=== PATIENT | female | born 2005 | race Caucasian/White ===

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

== ENCOUNTER 2023-10-23 11:38 | Emergency (ER) | payer OTHER, SELFPAY ==
[2023-10-23 12:20] VITALS: BP 113/78; PULSE 78; RESP 18; TEMP 37.1; O2SAT 96; BMI 19.0
--- NOTE | 2023-10-23 12:20 | EXP.UTC ---
Discharge Plan Disposition Patient Disposition: Home, Self-Care Condition: Good Prescriptions Prescriptions: New amoxicillin [amoxicillin] 875 mg tablet 875 mg PO Q12H Qty: 20 0RF fvmpizdtzijzvcl-qwhmzxbdt-PK [Bromfed DM] 2-30-10 mg/5 mL Syrup 5 ml PO Q6H PRN (Reason: Cough) Qty: 240 0RF methylprednisolone 4 mg Tablets,Dose Pack 4 mg PO DIRECTED Qty: 21 0RF No Action medroxyprogesterone [Depo-Provera] 150 mg/mL suspension 150 mg IM [id number] Qty: 1 3RF Referrals Follow up/Referrals: Fransisca Jalloh APRN [Primary Care Provider] - See instructions Activity Restrictions/Add. Instructions Additional Instructions/Restrictions: Drink plenty of fluids. Take tylenol or ibuprofen for pain or fever. Take the medications as directed. Follow up with your regular doctor. GO TO THE ER FOR ANY WORSENING SYMPTOMS Clinical Impressions Clinical Impression: Otitis media Instructions Patient Instructions: Middle Ear Infection Discharge ED Provider: Tyler Kelsey [facility] General Stated complaint: ear pain, can't hear Time Seen by Provider: 10/23/23 12:20 History of Present Illness Provider Complaint: She states that for the past 2 day she has had worsening right ear pain, sore throat, and sinus congestion. Related Data Previous Rx's Medication Instructions Recorded medroxyprogesterone 150 mg/mL 150 mg IM [id number] #1 mL 12/28/20 intramuscular suspension (Depo-Provera) amoxicillin 875 mg tablet 875 mg PO Q12H #20 tabs 10/23/23 opxsfojocgyloxo-epflhvgxymfxofi-HU 5 ml PO Q6H PRN Cough #240 mL 10/23/23 2 mg-30 mg-10 mg/5 mL oral syrup (Bromfed DM) methylprednisolone 4 mg tablets in 4 mg PO DIRECTED #21 tabs 10/23/23 a dose pack Allergies Allergy/AdvReac Type Severity Reaction Status Date / Time No Known Allergies Allergy Verified 10/23/23 12:26 [facility] Disclaimer: The information contained in this section may have been updated after the patient was seen, as this information can be updated by other users. Social History Smoking Status: Never smoker alcohol intake: never substance use type: denies use current occupational status: unemployed Travel in the last 8 weeks: None ROS Obtained: Yes All systems reviewed & no additional complaints except as documented Constitutional Constitutional: Denies chills, Reports fever(s) and Reports poor appetite Eyes Eyes: Denies eye discharge ENT Ears, Nose, Mouth, and Throat: Denies ear discharge, Reports otalgia, Denies hearing loss, Denies sinus pain and Reports sore throat Cardiovascular Cardiovascular: Denies chest pain and Denies dyspnea Respiratory Respiratory: Denies chest congestion, Reports cough and Denies dyspnea Gastrointestinal Gastrointestingal: Denies abdominal pain, diarrhea, nausea or vomiting Musculoskeletal Musculoskeletal: Denies arthralgias Integumentary/Breasts Skin/Breast: Denies rash Physical Exam General General appearance: alert and in no apparent distress Head Head exam: atraumatic, normocephalic and normal inspection Eye Eye exam: Present normal appearance; Absent PERRL or EOMI ENT ENT exam: Present mucous membranes moist and normal external ear exam Expanded ENT Exam TM/Canal exam: Bilateral TM: erythema, bulging and effusion Nose exam: Absent sinus tenderness Nasal speculum exam: Bilateral: normal Mouth exam: Present normal external inspection and other; Absent drooling Teeth exam: Present normal inspection Throat exam: Present tonsillar erythema and tonsillomegaly Neck Neck exam: Present normal inspection, full ROM and trachea midline; Absent tenderness, meningismus or lymphadenopathy Chest Chest inspection: Present normal inspection and symmetric chest wall rise; Absent tenderness Respiratory Respiratory exam: Present normal lung sounds bilaterally; Absent respiratory distress, wheezes or stridor Cardiovascular Cardiov
[2023-10-23 12:43] VITALS: BP 113/78; PULSE 78; RESP 18; TEMP 37.1; O2SAT 96
== END 2023-10-23 12:30 | disposition home or self-care (01) ==
PROVIDERS: Emergency Provider Nurse Practitioner Family; PCP Nurse Practitioner
DX: H66.93 Otitis media, unspecified, bilateral (principal); R07.0 Pain in throat; R09.81 Nasal congestion; R50.9 Fever, unspecified
CPT/HCPCS: 99204; 99212; G0463

== ENCOUNTER 2024-03-11 13:11 | Outpatient (CLI) | payer OTHER, SELFPAY ==
[2024-03-11 19:01] LABS: HCG,Quantitative 16339 mIU/ml (0-5.42)
== END 2024-03-11 23:59 | disposition home or self-care (01) ==
LOC: LAB 13:12
PROVIDERS: PCP Nurse Practitioner; Visit Provider Nurse Practitioner Obstetrics & Gynecology
DX: N92.6 Irregular menstruation, unspecified (principal)
CPT/HCPCS: 36415; 84144; 84702

== ENCOUNTER 2024-03-23 16:39 | Outpatient (CLI) | payer OTHER, SELFPAY ==
[2024-03-27 05:19] LABS: Neisseria gonorrhoeae, NAA Negative (Negative)
== END 2024-03-23 23:59 | disposition home or self-care (01) ==
LOC: LAB.DROPOF 16:40
PROVIDERS: PCP Nurse Practitioner Obstetrics & Gynecology; Visit Provider Nurse Practitioner Obstetrics & Gynecology
DX: O26.891 Other specified pregnancy related conditions, first trimester (principal); Z3A.08 8 weeks gestation of pregnancy; A56.2 Chlamydial infection of genitourinary tract, unspecified
CPT/HCPCS: 87086; 87088; 87491; 87591

== ENCOUNTER 2024-03-27 10:01 | Outpatient (CLI) | payer OTHER, SELFPAY ==
--- NOTE | 2024-03-27 10:01 | US_ITS ---
PROCEDURE: US OB <= 14 WEEKS FETUS CLINICAL INDICATION: for dates COMPARISON: No exams were available for comparison FINDINGS: Transvaginal sonographic images of the pelvis were obtained. From her last menstrual period she is 9weeks 0 days. An intrauterine gestational sac is present with a pole with a crown-rump length of 1.86cm This correlates to a gestational age of 8weeks 3days. heart tones are present with an FHR of 170bpm. Yolk sac is noted. The yolk sac measures 5.7mm. The right ovary is seen and appears normal. The left ovary is seen and appears normal. There appears to be a corpus luteum in the left ovary. There is no fluid in the cul-de-sac. IMPRESSION: 1. Viable fetus within the uterine cavity. Yolk sac and pole seen. 2. size is within 4 days of her ALIVIA. 3. Fetus measures 8 weeks 3 days and her ALIVIA will remain 10/30/2024. 4. Both ovaries are seen and appear normal. Dictated by: Sergio Cornejo MD 03/27/2024 18:00 Sergio Cornejo MD in [facility] 03/27/2024 18:00
== END 2024-03-27 23:59 | disposition home or self-care (01) ==
LOC: RAD 10:01
PROVIDERS: PCP Nurse Practitioner; Visit Provider Nurse Practitioner Obstetrics & Gynecology
DX: O26.893 Other specified pregnancy related conditions, third trimester (principal); Z3A.39 39 weeks gestation of pregnancy
CPT/HCPCS: 76801

== ENCOUNTER 2024-06-18 12:42 | Outpatient (CLI) | payer OTHER, SELFPAY ==
--- NOTE | 2024-06-18 12:46 | US_ITS ---
PROCEDURE: US OB /MATERNAL DETAIL CLINICAL INDICATION: 20 wk + Anatomy Scan-Complete COMPARISON: US US OB <= 14 WEEKS FETUS from 06/15/2020 FINDINGS: Transabdominal sonographic images of the pelvis were obtained. From her established due date she is 20 weeks 6 days. Single viable intrauterine gestation. Initially breech then cephalic position. Placenta: Anteriorplacenta grade 1. The placenta appears to be previa completely overlying the internal os. There is an average amount of fluid. The cervix appears satisfactory. Closed and measuring 4.5 cm in length. Complete survey performed and was unremarkable on the submitted images as in PACS. No discrete anomalies identified on survey imaging by technologist. Active fetus. Three-vessel cord with satisfactory umbilical cord insertion. 4- chamber heart noted. Situs, aortic arch, LVOT, RVOT, three-vessel view appear normal. Survey of brain & ventricles Unremarkable. Cerebellum, thalamus, choroid plexus, cisterna magna appear normal. Face and neck survey unremarkable. Profile, nasion, lips and nose appeared normal. Diaphragm and chest views unremarkable. Abdomen: Both kidneys noted and there is bilateral, mild renal pelvis dilation. It measures 4.1 mm and 3.6 mm.. Stomach and bladder noted and satisfactory. Spine: Survey of the spine satisfactory with no anomalies identified nor imaged. Cervical, thoracic, lower spine appear normal. Both arms and legs noted. Amniotic Fluid: Adequate. MVP 5.34 cm. Measurements: Average ultrasound age 20weeks 6days. Estimated due date by ultrasound age 1210/30/2024. Estimated weight 367g BPD = 21weeks 2days Heart Rate = 153bpm Cerebellum = 20weeks 3days Humerus = 21weeks 3days HC/AC is 1.16 FL/BPD is 0.66 FL/AC is 0.21 IMPRESSION: 1. Viable fetus in the breech presentation with an anterior placenta grade 1. 2. The placenta appears to overlie the internal cervical os. 3. The fluid is within normal limits with an MVP 5.34 cm. 4. Anatomical scan appears normal. 5. There is mild bilateral renal pelvis dilation, maximum 4.1 mm. 6. Suggest repeat scan at 28 weeks to look at the renal pelvis and placenta previa. 7. biometry is consistent with the dates. Dictated by: Sergio Cornejo MD 06/19/2024 10:27 Sergio Cornejo MD in [facility] 06/19/2024 10:27
== END 2024-06-18 23:59 | disposition home or self-care (01) ==
LOC: RAD 12:42
PROVIDERS: PCP Nurse Practitioner; Visit Provider Nurse Practitioner Obstetrics & Gynecology
DX: Z34.82 Encounter for supervision of other normal pregnancy, second trimester (principal); Z3A.20 20 weeks gestation of pregnancy
CPT/HCPCS: 76811

== ENCOUNTER 2024-07-23 11:16 | Outpatient (CLI) | payer OTHER, SELFPAY ==
[2024-07-23 12:07] LABS: Basophils % 0.3 % (0.1-2.0); Eosinophils # 0.1 K/mm3 (0.0-0.4); Eosinophils % 1.3 % (0.1-12.0); Hematocrit 35.9 % (37.0-47.0); Hemoglobin 11.5 g/dL (12.2-16.2); Lymphocytes # 1.8 K/mm3 (0.7-4.5); Lymphocytes % 21.5 % (10-50); Mean Corpuscular HGB Conc 32.1 g/dL (31.8-35.4); Mean Corpuscular Hemoglobin 30.5 pg (27.0-31.2); Mean Corpuscular Volume 94.9 fl (81-99); Mean Platelet Volume 8.1 fl (7.4-10.4); Monocytes # 0.5 K/mm3 (0.1-1.0); Monocytes % 5.6 % (1.7-9.3); Neutrophils # 5.9 K/mm3 (1.8-7.8); Neutrophils % 71.2 % (37.0-80.0); Platelet Count 252 K/mm3 (142-424); Red Blood Count 3.79 M/mm3 (4.20-5.40); Red Cell Distribution Width 13.6 % (11.5-17.5); White Blood Count 8.4 K/mm3 (4.5-13.0)
[2024-07-24 05:12] LABS: HCV Ab Non Reactive (Non Reactive); Hepatitis B Surface Antigen Negative (Negative)
[2024-07-24 06:37] LABS: Rubella Antibodies, IgG 1.78 index (Immune >0.99)
[2024-07-24 12:14] LABS: Rapid Plasma Reagin Ab Titer Non Reactive titer (NonRea<1:1)
== END 2024-07-23 23:59 | disposition home or self-care (01) ==
LOC: LAB 11:18
PROVIDERS: PCP Nurse Practitioner; Visit Provider Nurse Practitioner Obstetrics & Gynecology
DX: Z34.90 Encounter for supervision of normal pregnancy, unspecified, unspecified trimester (principal)
CPT/HCPCS: 36415; 85025; 86593; 86762; 86803; 86850; 87340

== ENCOUNTER 2024-08-13 10:08 | Outpatient (CLI) | payer OTHER, SELFPAY ==
--- NOTE | 2024-08-13 10:13 | US_ITS ---
PROCEDURE: US OB FOLLOW UP CLINICAL INDICATION: f/u on Placenta Previa COMPARISON: US US OB <= 14 WEEKS FETUS from 03/27/2024 US US OB /MATERNAL DETAIL from 06/18/2024 FINDINGS: Transabdominal sonographic images of the pelvis were obtained. The following parameters are obtained: From her established due date she is 28weeks 6days Viable fetus in the cephalic presentation with an anterior placenta grade 1. Placenta previa is no longer present. The cervix measures 4.22 cm. weight 1288 grams, 2 lb 13 oz. heart rate: 140bpm bpm. BPD: 29weeks 1day, 43 percentile HC: 29weeks 3days, 32 percentile AC: 29weeks 1day, 50 percentile FL: 28weeks 2days, 19 percentile HC/AC: 1.08 FL/BPD: 0.73 FL/AC: 0.21 Growth percentile: 35 Amniotic fluid index: 9.61cm, MVP 3.65 cm No obvious anomalies evident. profile seen, stomach, bladder, kidneys, three-vessel cord, spine, four chamber heart appear normal. There continues to be mild common bilateral renal pelvis dilation measuring 5.7 mm and 4.3 mm. IMPRESSION: 1. Viable fetus in the cephalic presentation with an anterior placenta grade 1. 2. Placenta previa is no longer present. 3. The fluid is within normal limits with an amniotic fluid index of 9.61 cm, MVP 3.65 cm. 4. There has been good interval growth with the fetus currently 35th percentile. 5. Limited anatomical scan appears normal. 6. There continues to be mild bilateral renal pelvis dilation measuring 5.7 mm and 4.3 mm. Dictated by: Sergio Cornejo MD 08/13/2024 13:50 Sergio Cornejo MD in [facility] 08/13/2024 13:50
== END 2024-08-13 23:59 | disposition home or self-care (01) ==
LOC: RAD 10:09
PROVIDERS: PCP Nurse Practitioner; Visit Provider Nurse Practitioner Obstetrics & Gynecology
DX: Z36.2 Encounter for other antenatal screening follow-up (principal); O44.03 Complete placenta previa NOS or without hemorrhage, third trimester; Z3A.28 28 weeks gestation of pregnancy
CPT/HCPCS: 76816

== ENCOUNTER 2024-08-20 10:44 | Outpatient (CLI) | payer OTHER, SELFPAY ==
[2024-08-20 11:16] LABS: Glucose,Fasting 72 mg/dl (74-100)
[2024-08-20 11:30] LABS: Basophils % 0.4 % (0.1-2.0); Eosinophils # 0.1 K/mm3 (0.0-0.4); Hemoglobin 11.7 g/dL (12.2-16.2); Lymphocytes # 2.1 K/mm3 (0.7-4.5); Lymphocytes % 22.5 % (10-50); Mean Corpuscular HGB Conc 32.4 g/dL (31.8-35.4); Mean Corpuscular Hemoglobin 30.3 pg (27.0-31.2); Mean Corpuscular Volume 93.6 fl (81-99); Mean Platelet Volume 7.7 fl (7.4-10.4); Monocytes # 0.5 K/mm3 (0.1-1.0); Monocytes % 5.2 % (1.7-9.3); Neutrophils # 6.6 K/mm3 (1.8-7.8); Neutrophils % 70.9 % (37.0-80.0); Platelet Count 257 K/mm3 (142-424); Red Blood Count 3.85 M/mm3 (4.20-5.40); White Blood Count 9.3 K/mm3 (4.5-13.0)
[2024-08-20 13:21] LABS: Glucose 1 Hour 141 mg/dL (74-100)
[2024-08-21 11:19] LABS: Rapid Plasma Reagin Ab Titer Non Reactive titer (NonRea<1:1)
== END 2024-08-20 23:59 | disposition home or self-care (01) ==
PROVIDERS: PCP Nurse Practitioner; Visit Provider Nurse Practitioner Obstetrics & Gynecology
DX: Z34.90 Encounter for supervision of normal pregnancy, unspecified, unspecified trimester (principal)
CPT/HCPCS: 36415; 82951; 85025; 86593

== ENCOUNTER 2024-08-21 09:58 | Outpatient (CLI) | payer OTHER, SELFPAY ==
[2024-08-21 10:58] LABS: Glucose,Fasting 83 mg/dl (74-100)
[2024-08-21 11:48] LABS: Glucose 1 Hour 176 mg/dL (74-100)
[2024-08-21 13:03] LABS: Glucose 2 Hour 128 mg/dL (74-100)
[2024-08-21 15:21] LABS: Glucose 3 Hour 69 mg/dL (74-100)
== END 2024-08-21 23:59 | disposition home or self-care (01) ==
LOC: LAB 09:59
PROVIDERS: PCP Nurse Practitioner; Visit Provider Nurse Practitioner Obstetrics & Gynecology
DX: Z34.90 Encounter for supervision of normal pregnancy, unspecified, unspecified trimester (principal)
CPT/HCPCS: 36415; 82951

== ENCOUNTER 2024-09-18 17:21 | Outpatient (CLI) | payer OTHER, SELFPAY ==
[2024-09-18 17:41] VITALS: BP 118/68; PULSE 90; RESP 16; TEMP 36.8; O2SAT 98; BMI 26.1
[2024-09-18 18:22] LABS: Opiate Screen,Urine Negative ng/ml (<300); Phencyclidine Screen,Urine Negative ng/ml (<25)
[2024-09-18 18:24] LABS: Amphetamine/Metha Screen,Urine Negative ng/ml (<1000); Benzodiazepines Screen,Urine Negative ng/ml (<200)
[2024-09-18 18:25] LABS: Barbiturates Screen,Urine Negative ng/ml (<200)
[2024-09-18 18:28] LABS: Methadone Screen,Urine Negative ng/ml (<300)
[2024-09-18 18:29] LABS: Cannabinoid Screen,Urine Negative ng/ml (<50); Cocaine Screen,Urine Negative ng/ml (<300)
[2024-09-18 19:09] LABS: Microscopic, Urine URINE MICROSCOPIC (MICROSCOPIC)
[2024-09-18 19:10] LABS: Appearance,Urine CLEAR (Clear); Bilirubin,Urine Negative (Negative); Blood, Urine Negative (Negative); Color,Urine YELLOW (Yellow); Glucose,Urine (UA) Negative (Negative); Ketones,Urine Negative (Negative); Leukocyte Esterase,Urine 1+ (Negative); Nitrate,Urine Negative (Negative); Protein,Urine Negative (Negative); Specific Gravity, Urine 1.015 (1.005-1.030)
[2024-09-18 19:25] LABS: Amorphous Sediment,Urine 4+ /lpf; Bacteria,Urine 3+ /lpf; RBC,Urine Occasional #/hpf (0-3); Squamous Epithelial Cell,Urine 20-50 #/hpf (0-5)
== END 2024-09-18 19:40 | disposition home or self-care (01) ==
LOC: OBOUT 17:22 → OB 17:23
PROVIDERS: PCP Nurse Practitioner; Visit Provider Obstetrics & Gynecology
DX: O36.8130 Decreased fetal movements, third trimester, not applicable or unspecified (principal); Z3A.34 34 weeks gestation of pregnancy
CPT/HCPCS: 80307; 81001; 87086; G0463

== ENCOUNTER 2024-10-06 01:27 | Outpatient (CLI) | payer OTHER, SELFPAY ==
[2024-10-06 01:33] VITALS: BP 107/73; PULSE 98; RESP 18; TEMP 36.7; O2SAT 99; BMI 26.4
[2024-10-06 01:51] LABS: Microscopic, Urine URINE MICROSCOPIC (MICROSCOPIC)
[2024-10-06 01:53] LABS: Appearance,Urine CLEAR (Clear); Bilirubin,Urine Negative (Negative); Blood, Urine Negative (Negative); Color,Urine YELLOW (Yellow); Glucose,Urine (UA) Negative (Negative); Ketones,Urine Negative (Negative); Leukocyte Esterase,Urine TRACE (Negative); Nitrate,Urine Negative (Negative); Protein,Urine Negative (Negative); Specific Gravity, Urine 1.015 (1.005-1.030)
[2024-10-06 02:06] LABS: Amphetamine/Metha Screen,Urine Negative ng/ml (<1000); Benzodiazepines Screen,Urine Negative ng/ml (<200)
[2024-10-06 02:07] LABS: Barbiturates Screen,Urine Negative ng/ml (<200)
[2024-10-06 02:08] LABS: Cannabinoid Screen,Urine Negative ng/ml (<50); Cocaine Screen,Urine Negative ng/ml (<300)
[2024-10-06 02:09] LABS: Methadone Screen,Urine Negative ng/ml (<300)
[2024-10-06 02:10] LABS: Opiate Screen,Urine Negative ng/ml (<300); Phencyclidine Screen,Urine Negative ng/ml (<25)
[2024-10-06 02:13] LABS: Bacteria,Urine 1+ /lpf
== END 2024-10-06 03:15 | disposition home or self-care (01) ==
LOC: OBOUT 01:29 → OB 01:30
PROVIDERS: Nurse Practitioner Obstetrics & Gynecology; PCP Nurse Practitioner; Visit Provider Obstetrics & Gynecology
DX: O60.03 Preterm labor without delivery, third trimester (principal); Z3A.36 36 weeks gestation of pregnancy
CPT/HCPCS: 59025; 80307; 81001

== ENCOUNTER 2024-10-07 13:31 | Outpatient (CLI) | payer OTHER, SELFPAY ==
--- NOTE | 2024-10-07 13:32 | US_ITS ---
PROCEDURE: US OB FOLLOW UP CLINICAL INDICATION: F/U on Kidneys of Baby COMPARISON: US US OB <= 14 WEEKS FETUS from 03/27/2024 US US OB /MATERNAL DETAIL from 06/18/2024 US OB FOLLOW UP from 08/13/2024 FINDINGS: Transabdominal sonographic images of the pelvis were obtained. The following parameters are obtained: From her established due date she is 36weeks 5days Viable fetus in the cephalic presentation with an anterior placenta grade 2. There are several small placental lakes. The cervix measures 3.7 cm heart rate: 138bpm bpm. Estimated weight 2592 grams, 5 lb 11 oz BPD: 36weeks 2days, 51 percentile HC: 37weeks 1day, 32 percentile AC: 34weeks 5days, 10 percentile FL: 35weeks 0 days, 10 percentile HC/AC: 1.07 FL/BPD: 0.76 FL/AC: 0.22 Growth percentile:16 Amniotic fluid index: 9.02cm MVP 5.04 cm No obvious anomalies evident. Stomach, bladder, kidneys, three-vessel cord, four chamber heart appear normal. There continues to be bilateral mild renal pelvis dilation. Left kidney is 6.7 mm and right kidney is 2.8 mm. IMPRESSION: 1. Viable fetus in the cephalic presentation with an anterior placenta grade 2. 2. The fluid is within normal limits with an amniotic fluid index 9.02 cm, MVP 5.04 cm. 3. There has been good interval growth with the fetus currently 16th percentile. 4. Limited anatomical scan appears normal. 5. There continues to be left renal pelvis dilation measuring 6.7 mm. Dictated by: Sergio Cornejo MD 10/07/2024 16:02 Sergio Cornejo MD in [facility] 10/07/2024 16:02
== END 2024-10-07 23:59 | disposition home or self-care (01) ==
LOC: RAD 13:32
PROVIDERS: PCP Nurse Practitioner; Visit Provider Nurse Practitioner Obstetrics & Gynecology
DX: Z36.2 Encounter for other antenatal screening follow-up (principal); O44.02 Complete placenta previa NOS or without hemorrhage, second trimester; Z3A.36 36 weeks gestation of pregnancy
CPT/HCPCS: 76816; 86403

== ENCOUNTER 2024-10-12 02:12 | Outpatient (CLI) | payer OTHER, SELFPAY ==
[2024-10-12 02:15] VITALS: BMI 26.8
[2024-10-12 02:19] VITALS: BMI 26.4
[2024-10-12 02:20] VITALS: BP 123/67; PULSE 105; RESP 18; TEMP 37.1; O2SAT 97; BMI 26.8
[2024-10-12 02:42] LABS: Microscopic, Urine URINE MICROSCOPIC (MICROSCOPIC)
[2024-10-12 02:43] LABS: Appearance,Urine CLEAR (Clear); Bilirubin,Urine Negative (Negative); Blood, Urine Negative (Negative); Color,Urine YELLOW (Yellow); Glucose,Urine (UA) Negative (Negative); Ketones,Urine Negative (Negative); Leukocyte Esterase,Urine TRACE (Negative); Nitrate,Urine Negative (Negative); PH,Urine 6.5 (5.0-8.5); Protein,Urine Negative (Negative); Specific Gravity, Urine 1.015 (1.005-1.030)
[2024-10-12 02:46] LABS: Bacteria,Urine 1+ /lpf; RBC,Urine Occasional #/hpf (0-3)
[2024-10-12 02:55] LABS: Amphetamine/Metha Screen,Urine Negative ng/ml (<1000); Benzodiazepines Screen,Urine Negative ng/ml (<200)
[2024-10-12 02:56] LABS: Barbiturates Screen,Urine Negative ng/ml (<200)
[2024-10-12 02:57] LABS: Cannabinoid Screen,Urine Negative ng/ml (<50); Cocaine Screen,Urine Negative ng/ml (<300)
[2024-10-12 02:58] LABS: Methadone Screen,Urine Negative ng/ml (<300)
[2024-10-12 02:59] LABS: Opiate Screen,Urine Negative ng/ml (<300); Phencyclidine Screen,Urine Negative ng/ml (<25)
== END 2024-10-12 03:50 | disposition home or self-care (01) ==
LOC: OBOUT 02:14 → OB 02:14
PROVIDERS: PCP Nurse Practitioner; Visit Provider Obstetrics & Gynecology
DX: O60.03 Preterm labor without delivery, third trimester (principal); Z3A.37 37 weeks gestation of pregnancy
CPT/HCPCS: 80307; 81001

== ENCOUNTER 2024-10-19 23:23 | Outpatient (CLI) | payer OTHER, SELFPAY ==
[2024-10-19 23:42] VITALS: BMI 27.2
[2024-10-19 23:48] LABS: Microscopic, Urine URINE MICROSCOPIC (MICROSCOPIC)
[2024-10-19 23:54] LABS: Bilirubin,Urine Negative (Negative); Blood, Urine Negative (Negative); Color,Urine YELLOW (Yellow); Glucose,Urine (UA) Negative (Negative); Ketones,Urine Negative (Negative); Leukocyte Esterase,Urine 2+ (Negative); Nitrate,Urine Negative (Negative); Protein,Urine Negative (Negative); Specific Gravity, Urine 1.015 (1.005-1.030)
[2024-10-19 23:56] LABS: Appearance,Urine Slightly Cloudy (Clear)
[2024-10-20 00:09] VITALS: BMI 27.2
[2024-10-20 00:11] LABS: Methadone Screen,Urine Negative ng/ml (<300); Opiate Screen,Urine Negative ng/ml (<300); Phencyclidine Screen,Urine Negative ng/ml (<25)
[2024-10-20 00:28] LABS: Fetal Membrane Rupture (Rapid) Negative (Negative)
[2024-10-20 00:46] LABS: Bacteria,Urine 1+ /lpf
[2024-10-20 01:06] LABS: Barbiturates Screen,Urine Negative ng/ml (<200)
[2024-10-20 01:07] LABS: Amphetamine/Metha Screen,Urine Negative ng/ml (<1000); Benzodiazepines Screen,Urine Negative ng/ml (<200)
[2024-10-20 01:08] LABS: Cannabinoid Screen,Urine Negative ng/ml (<50)
[2024-10-20 01:09] LABS: Cocaine Screen,Urine Negative ng/ml (<300)
== END 2024-10-20 00:50 | disposition home or self-care (01) ==
LOC: OBOUT 23:25 → OB 23:26
PROVIDERS: PCP Obstetrics & Gynecology; Visit Provider Nurse Practitioner
DX: O60.03 Preterm labor without delivery, third trimester (principal); Z3A.38 38 weeks gestation of pregnancy
CPT/HCPCS: 80307; 81001; 84112; 87086; G0463

== ENCOUNTER 2024-10-23 08:13 | Inpatient (IN) | payer OTHER, SELFPAY ==
[2024-10-22 14:07] VITALS: BMI 27.1
[2024-10-22 14:57] VITALS: BP 127/74; PULSE 99; RESP 18; TEMP 36.8; O2SAT 97; BMI 27.1
[2024-10-22 15:17] LABS: Basophils % 0.3 % (0.1-2.0); Chloride 106 mmol/L (98-107); Eosinophils # 0.1 K/mm3 (0.0-0.4); Eosinophils % 0.5 % (0.1-12.0); Hematocrit 31.8 % (37.0-47.0); Hemoglobin 10.5 g/dL (12.2-16.2); Mean Corpuscular HGB Conc 33.1 g/dL (31.8-35.4); Mean Corpuscular Volume 81.5 fl (81-99); Mean Platelet Volume 8.5 fl (7.4-10.4); Monocytes # 0.7 K/mm3 (0.1-1.0); Monocytes % 5.6 % (1.7-9.3); Neutrophils # 9.2 K/mm3 (1.8-7.8); Neutrophils % 76.6 % (37.0-80.0); Platelet Count 281 K/mm3 (142-424); Potassium 3.4 mmoL/L (3.5-5.1); Red Cell Distribution Width 14.6 % (11.5-17.5); Sodium 134 mmol/L (136-145)
[2024-10-22 15:20] LABS: Anion Gap 9.4 mEq/L (5-15); Blood Urea Nitrogen 9 mg/dl (7-17); Calcium 8.6 mg/dl (8.4-10.2); Carbon Dioxide 22 mmol/L (22.0-30.0); Creatinine Clearance Estimated 180 mL/min (50-200); Estimated Glomerular Filt Rate 127 ml/min (>60); GFR (African American) 154 ML/MIN (>60); Glucose 97 mg/dl (74-100)
[2024-10-22 16:52] LABS: Microscopic, Urine URINE MICROSCOPIC (MICROSCOPIC)
[2024-10-22 17:24] LABS: Benzodiazepines Screen,Urine Negative ng/ml (<200)
[2024-10-22 17:25] LABS: Amphetamine/Metha Screen,Urine Negative ng/ml (<1000); Barbiturates Screen,Urine Negative ng/ml (<200)
[2024-10-22 17:26] LABS: Methadone Screen,Urine Negative ng/ml (<300)
[2024-10-22 17:27] LABS: Appearance,Urine CLEAR (Clear); Bilirubin,Urine Negative (Negative); Blood, Urine Negative (Negative); Cannabinoid Screen,Urine Negative ng/ml (<50); Cocaine Screen,Urine Negative ng/ml (<300); Color,Urine YELLOW (Yellow); Glucose,Urine (UA) Negative (Negative); Ketones,Urine Negative (Negative); Leukocyte Esterase,Urine Negative (Negative); Nitrate,Urine POSITIVE (Negative); PH,Urine 6.5 (5.0-8.5); Protein,Urine Negative (Negative); Specific Gravity, Urine 1.025 (1.005-1.030); Urobilinogen,Urine 0.2 EU/dl (0.2)
[2024-10-22 17:28] LABS: Opiate Screen,Urine Negative ng/ml (<300); Phencyclidine Screen,Urine Negative ng/ml (<25)
[2024-10-22 18:28] LABS: Bacteria,Urine 3+ /lpf; Calcium Oxalate Crystals,Urine 2+ /lpf; Squamous Epithelial Cell,Urine 20-50 #/hpf (0-5); WBC,Urine 20-50 #/hpf (0-3)
[2024-10-23] MEDS: LACTATED RINGERS 1000ML 1,000 ML 500 ML IV (03:27)
--- NOTE | 2024-10-23 04:22 | P.PNANES_ITS ---
[facility] Disclaimer: The information contained in this section may have been updated after the patient was seen, as this information can be updated by other users. Medical History Placenta previa Surgical History Hx of appendectomy History of tonsillectomy Family History Other No significant family history Social History (Updated 10/22/24 @ 15:03 by Chastity Samuel RN) Smoking Status: Current every day smoker tobacco type: e-cigarettes alcohol intake: never substance use type: denies use current occupational status: employed Travel in the last 8 weeks: None [facility] Anesthesia Checklist Patient Identification Patient Identification: Arm Band Structural Data Admitted From: Home Planned Operative Procedure/s: Labor Epidural Consent for Planned Operative Procedure(s) Verified: Yes Verified Documents: Surgical Consent and History and Physical NPO Status Verified Time NPO: 00:00 Additional verifications Anesthesia Reactions: No Hx Blood Transfusions: No Blood Transfusion Reaction: No Neurological Assessment Level of Consciousness: Awake, Alert and Appropriate Anesthesia Plan Anesthesia Risk discussed: Yes Anesthesia Plan: Verified ASA Class: II Anesthesia Type: Epidural
[2024-10-23] MEDS: DEXTROSE 5%-LACTATED RINGERS 1,000 ML 125 ML IV (04:38)
[2024-10-23] MEDS: ePHEDrine SULF 50MG/ML VIAL 10 MG IV ×2 (04:47→05:45)
[2024-10-23] MEDS: LACTATED RINGERS 1000ML 1,000 ML 999 ML IV (05:52)
--- NOTE | 2024-10-23 07:38 | EXP.HP ---
History of Present Illness *Admission Date: 10/22/24 *Reason for visit:: Scheduled elective induction of labor *History of present illness: Ms Joanna De Leon is a 18 yo at 39w0d who presented to [facility] L&D for scheduled induction of labor. She has had good care. She had complete placenta previa on 20 week ultrasound that resolved. complicated by maternal chlamydia infection and left RPD. Vaginal ID 07/27/24 was negative for STDs including Chlamydia. On admission she reported irregular contractions and active baby. No leakage of fluid or vaginal bleeding on admission. Cervical exam was 360/-3. GBS negative. [facility] Disclaimer: The information contained in this section may have been updated after the patient was seen, as this information can be updated by other users. Medical History (Updated 10/23/24 @ 07:50 by Betsy Knapp DO) Spontaneous onset of labor Dilation of renal pelvis of fetus 39 weeks gestation of Encounter for elective induction of labor Placenta previa Surgical History Hx of appendectomy History of tonsillectomy Family History Other No significant family history Social History (Updated 10/22/24 @ 15:03 by Chastity Samuel RN) Smoking Status: Current every day smoker tobacco type: e-cigarettes alcohol intake: never substance use type: denies use current occupational status: employed Travel in the last 8 weeks: None Other Medical History Have you received the Flu Vaccine for this season: No Have you received the Pneumonia Vaccine: No Review of Systems Review of Systems Review of systems:: pertinent systems reviewed and negative unless documented below Meds Home Medications and Allergies Home Medications ?Medication ?Instructions ?Recorded ?Confirmed ?Type pediatric multivitamin 1 tab PO DAILY 03/23/24 10/22/24 History (Shilpa Multivitamin chewable tablet) ferrous sulfate 325 mg (65 mg 325 mg PO DAILY #30 tabs 06/04/24 10/22/24 Rx iron) tablet New Prescriptions to Start Prescriptions: Allergies Allergy/AdvReac Type Severity Reaction Status Date / Time No Known Allergies Allergy Verified 10/20/24 09:43 Exam Data for Last 24 hours Vital signs and Labs for Last 24 Hours: Temp Pulse Resp BP Pulse Ox O2 Del Method 98.2 F 99 H 18 127/74 97 Room Air 10/22/24 14:57 10/22/24 14:57 10/22/24 14:57 10/22/24 14:57 10/22/24 14:57 10/22/24 14:57 Laboratory Results - last 24 hr 10/22/24 13:30: Urine Color Yellow, Urine Appearance Clear, Urine pH 6.5, Ur Specific [place] 1.025, Urine Protein Negative, Urine Glucose (UA) Negative, Urine Ketones Negative, Urine Blood Negative, Urine Nitrate Positive A, Urine Bilirubin Negative, Urine Urobilinogen 0.2, Ur Leukocyte Esterase Negative, Urine RBC None, Urine WBC 20-50, Ur Squamous Epith Cells 20-50, Calcium Oxalate Crystal 2+, Urine Bacteria 3+, Urine Opiates Screen Negative, Urine Methadone Screen Negative, Ur Barbituates Screen Negative, Ur Phencyclidine Scrn Negative, Ur Amphetamines Screen Negative, U Benzodiazepines Scrn Negative, Urine Cocaine Screen Negative, U Marijuana (THC) Screen Negative 10/22/24 14:50: WBC 12.0, RBC 3.90 L, Hgb 10.5 L, Hct 31.8 L, MCV 81.5, MCH 27.0, MCHC 33.1, RDW 14.6, Plt Count 281, MPV 8.5, Neut % (Auto) 76.6, Lymph % (Auto) 17.0, [place] % (Auto) 5.6, Eos % (Auto) 0.5, Baso % (Auto) 0.3, Neut # (Auto) 9.2 H, Lymph # (Auto) 2.0, [place] # (Auto) 0.7, Eos # (Auto) 0.1, Baso # (Auto) 0.0, Sodium 134 L, Potassium 3.4 L, Chloride 106, Carbon Dioxide 22, Anion Gap 9.4, BUN 9, Creatinine 0.60, Estimated Creat Clear 180, Estimated GFR 127, Est GFR ( Amer) 154, Glucose 97, Calcium 8.6, Blood Type O Positive, Antibody Screen Negative I & O for Last 24 hours: Intake & Output 10/20/24 10/21/24 10/22/24 10/23/24 23:59 23:59 23:59 23:59 Weight 168 lb Constitutional Constitutional: no acute distress and cooperative *Routine HEENT Exam Head: Present normocephalic and atraumatic Eye: Absent conjunctivae pink ENT: Present mucous membranes moist *Routine Neck Exam Neck: Present full ROM *Routine Respiratory Exam Respiratory: Present CTA bilaterally and normal respiratory effort *Routine Cardiovascular Exam Cardiovascular: Present RRR *Routine Abdominal Exam Abdominal: Present soft (Gravid); Absent tenderness *Routine Rectal Exam Rectal:: deferred *Routine Genitalia Exam Genitalia:: normal female *Routine Extremities Exam Extremities: Present full ROM; Absent edema or calf tenderness Routine Psychiatric Exam Psychiatric: Present normal affect and cooperative Assessment and Plan *Assessment and plan (1) Spontaneous onset of labor: Status: Acute Category: Medical (2) 39 weeks gestation of : Status: Acute Category: Medical Code(s): Z3A.39 - 39 weeks gestation of (3) Dilation of renal pelvis of fetus: Status: Acute Category: Medical Plan Admit to L&D for induction of labor. On arrival, SVE was 3/60/-3. Decision was made to hold Cytotec and start Pitocin at 0400. However, she continued to progress spontaneously. At 0500 cervical exam was 7/80/-2. No pitocin was started. She continued to progress on her own. GBS negative Close monitoring Anticipate
--- NOTE | 2024-10-23 08:35 | HMH.PHAINT1 ---
Pharmacy Intervention Comments: MEDICATION RECONCILIATION COMPLETED ON PATIENT USING EXTERNAL FILL HISTORY FROM PHARMACY. -JOSE IRWIN, VERAD
[2024-10-23] MEDS: OXYTOCIN/RINGERS LACTATE 30 UNITS/500 ML BAG 999 UNITS IV (09:10)
[2024-10-23] MEDS: BENZOCAINE-MENTHOL SPRAY 56GM CAN TP (09:25)
[2024-10-23] MEDS: OXYTOCIN/RINGERS LACTATE 30 UNITS/500 ML BAG 40 UNITS IV (09:25)
--- NOTE | 2024-10-23 10:52 | EXP.DN ---
Delivery Note Delivery Date:: 10/23/24 Delivery Time:: 09:06 Anesthesia Type: Epidural Was labor medically induced?: No Gestational age (weeks): 39 delivered prior to 39 weeks?: No Justification for early elective delivery:: Active Labor Gender: Male at 1 minute: 8 at 5 minutes: 9 Delivery Procedure:: Preoperative diagnosis: 1. at 39 completed this weeks gestation, vertex 2. Rh positive 3. GBS negative 4. Active labor 5. Chlamydia in the first trimester 6. renal pelvis dilation, left, 6.7 mm at 36 weeks and 5 days gestation Postoperative diagnosis: 1. at 39 completed this weeks gestation, vertex 2. Rh positive 3. GBS negative 4. Active labor 5. Chlamydia in the first trimester 6. renal pelvis dilation, left, 6.7 mm at 36 weeks and 5 days gestation EBL: 200mL Specimen: 1. Cord blood Findings: 1. Liveborn viable male infant: Carrillo. Apgars 8/9 at 1 and 5 minutes respectively. Weight 7lb3oz 2. 2nd degree midline perineal laceration Complications: None Procedure: Nonoperative spontaneous vaginal delivery Tomasa De Leon is a 18yo who presented to labor and delivery with regular painful contractions on the day of her induction and was noted to be making cervical change without any help. She continued to progress. The plan was to augment with Pitocin around 0400, however she was noted to have me change to 7 cm dilated at that time and was in a significant amount of pain. Epidural was placed. The patient continued to progress on her own. She had spontaneous rupture of membranes revealing clear fluid. She progressed to complete. The was noted to be in direct OP position. With effective maternal pushing there was a nonoperative spontaneous vaginal delivery at 0906. There was no nuchal cord. The anterior shoulder delivered, followed by the posterior shoulder without dystocia. The body and lower extremities delivered without difficulty. The was bulb suctioned and was crying immediately following delivery. The infant was placed on the maternal abdomen and greater than one minute was appreciated for delayed cord clamping. The umbilical cord was doubly clamped and cut. Cord blood was collected and sent for routine testing. The placenta delivered with cord traction and suprapubic contertraction. Pitocin was started. The uterus was firm and bleeding was minimal. The perineum, vaginal clay, cervix, and paraurethral area were inspected thoroughly. There was a second-degree midline perineal laceration. 1% Lidocaine, 10ml, was injected during the repair due to patient discomfort. The laceration was repaired in the usual fashion using 2-0 Vicryl suture. The laceration was hemostatic. The cervix and vaginal clay were inspected and noted to be hemostatic. This concluded the delivery. The patient was counseled regarding the events of the delivery and repair. The patient tolerated the delivery well. All counts were correct by nursing. Mother and infant were doing well and bonding upon my leaving the delivery room. Laceration:: vaginal Placental Delivery Description: Spontaneous
[2024-10-23] MEDS: CEFTRIAXONE 1 GM 1 GM in 0.9 % SODIUM CHLORIDE 50 ML IV (11:16)
[2024-10-23 12:03] LABS: RPR W/RFX Titers Nonreactive (Nonreactive)
[2024-10-23] MEDS: IBUPROFEN 400 MG TABLET 800 MG PO (16:25)
[2024-10-23] MEDS: ACETAMINOPHEN 500MG TAB 1000 MG PO (16:25)
[2024-10-23] MEDS: PRENATAL MULTIVITAMIN W/IRON 1 EACH PO (16:25)
[2024-10-24] MEDS: IBUPROFEN 400 MG TABLET 800 MG PO (04:12)
[2024-10-24] MEDS: ACETAMINOPHEN 500MG TAB 1000 MG PO (04:13)
[2024-10-24 06:49] LABS: Hemoglobin 9.2 g/dL (12.2-16.2)
[2024-10-24 07:51] VITALS: BP 100/57; PULSE 79; RESP 16; TEMP 36.6; O2SAT 97
--- NOTE | 2024-10-24 10:26 | P.DS_ITS ---
General Admission date:: 10/23/24 Discharge date: 10/24/24 HPI HPI HPI: Ms Joanna De Leon is a 18 yo at 39w0d who presented to [facility] L&D for scheduled induction of labor. She has had good care. She had complete placenta previa on 20 week ultrasound that resolved. complicated by maternal chlamydia infection and left RPD. Vaginal ID 07/27/24 was negative for STDs including Chlamydia. On admission she reported irregular contractions and active baby. No leakage of fluid or vaginal bleeding on admission. Cervical exam was 3/60/-3. GBS negative. Hospital Course Hospital Course Hospital Course: Tomasa De Leon is a 18yo PPD#1 from a normal spontaneous vaginal delivery. She delivered a live viable male infant on 10/23/2024 at 0906. She presented for her induction but was noted to be diego. She progressed to labor without any augmentation. She experienced SROM, clear fluid. Male infant: Carrillo Medrano, Tsew 7 pounds 3 ounces and was 18 inches long. Her GBS was negative and she is rubella immune. Her blood type is O+. She has done well and has remained afebrile with her at her hospitalization. She is eating and drinking and ambulating. She is bottlefeeding. Her lochia is normal. She will be discharged home to follow-up with Dr. Cornejo in 2 weeks time. She will continue with her vitamins and iron. She will take ibuprofen as well. She was given the usual instructions with respect to limiting her activity, driving and sexual activity. She was given instructions with respect to wound care. Her condition on discharge is stable and improved. Exam Data for Last 24 hours Vital signs and Labs for Last 24 Hours: Temp Pulse Resp BP Pulse Ox O2 Del Method 97.8 F 79 16 100/57 L 97 Room Air 10/24/24 07:51 10/24/24 07:51 10/24/24 07:51 10/24/24 07:51 10/24/24 07:51 10/24/24 07:51 Laboratory Results - last 24 hr 10/24/24 06:14: Hgb 9.2 L, Hct 28.0 L I & O for Last 24 hours: Intake & Output 10/21/24 10/22/24 10/23/24 12/07/24 23:59 23:59 23:59 23:59 Weight 168 lb Microbiology Reports for the Last 24 Hours: Microbiology 10/22/24 13:30 Urine,Clean Catch Urine Culture - Final Constitutional Constitutional: no acute distress *Routine HEENT Exam Head: Present normocephalic Eye: Present EOMI and PERRL ENT: Present mucous membranes moist *Routine Neck Exam Neck: Present supple; Absent lymphadenopathy *Routine Respiratory Exam Respiratory: Present CTA bilaterally *Routine Cardiovascular Exam Cardiovascular: Present RRR *Routine Abdominal Exam Abdominal: Present soft and normoactive bowel sounds; Absent tenderness Comments: fundus firm and below umbilicus *Routine Extremities Exam Extremities: Absent cyanosis, clubbing or edema *Routine Skin Exam Skin: Present warm; Absent rash *Routine Neurological Exam Neurological: Present alert and oriented X3 Results Data Completed and Pending Labs on day of discharge: Labs from last 24 hours 10/24/24 06:14 Hgb 9.2 L Hct 28.0 L DS: Diagnosis Discharge Diagnosis (1) Spontaneous onset of labor: Status: Acute (2) 39 weeks gestation of : Status: Acute Code(s): Z3A.39 - 39 weeks gestation of (3) Dilation of renal pelvis of fetus: Status: Acute Meds Home Medications and Allergies Home Medications ?Medication ?Instructions ?Recorded ?Confirmed ?Type pediatric multivitamin 1 tab PO DAILY 03/23/24 10/22/24 History (Shilpa Multivitamin chewable tablet) ferrous sulfate 325 mg (65 mg 325 mg PO DAILY #30 tabs 06/04/24 10/22/24 Rx iron) tablet acetaminophen 500 mg tablet 500 mg PO Q6H PRN fever or pain 10/24/24 Rx #30 tabs ferrous sulfate 325 mg (65 mg 325 mg PO DAILY #30 tabs 10/24/24 Rx iron) tablet,delayed release ibuprofen 800 mg tablet 800 mg PO Q8H PRN pain #60 tabs 10/24/24 Rx sennosides 8.6 mg tablet (Senna 8.6 mg PO BIDP PRN Constipation 10/24/24 Rx Lax) #60 tabs New Prescriptions to Start Prescriptions: acetaminophen Taylor Amin ferrous sulfate Taylor Amin ibuprofen Taylor Amin sennosides [Senna Lax] Taylor Amin Allergies Allergy/AdvReac Type Severity Reaction Status Date / Time No Known Allergies Allergy Verified 10/20/24 09:43 Discharge Plan Disposition Patient Disposition: Home, Self-Care Discharge Order Discharge Orders: Discharge Order (Routine); Ordered 10/24/24 Ordered By: Taylor Amin Follow up Plan Follow up with: Sergio Cornejo MD [Staff Physician] - 2 weeks Prescriptions/Medication Reconciliation: New sennosides [Senna Lax] 8.6 mg Tablet 8.6 mg PO BIDP PRN (Reason: Constipation) Qty: 60 2RF ibuprofen 800 mg tablet 800 mg PO Q8H PRN (Reason: pain) Qty: 60 2RF acetaminophen 500 mg tablet 500 mg PO Q6H PRN (Reason: fever or pain) Qty: 30 3RF ferrous sulfate 325 mg (65 mg iron) tablet,delayed release (DR/EC) 325 mg PO DAILY Qty: 30 3RF Continued Flintstones Multivitamin Tablet,Chewable 1 tab PO DAILY ferrous sulfate 325 mg (65 mg iron) tablet 325 mg PO DAILY Qty: 30 3RF Problem Reconciliation Problems Reviewed?: Yes Patient Discharge Instructions ACTIVITY: Continue current activity DIET: regular diet Additional Instructions: Congratulations on the delivery of your sweet baby boy. It is my privilege to be a part of your [employer] team and I am so thankful I could be a part of your special day. Discharge: -Take 800 mg Ibuprofen every 8 hours as needed for pain. You can also take 500- 1000 mg of Tylenol in between doses, every 6-8 hours. -Colace can be taken 1-2 times per day as you need to soften your stool. Make sure to drink at least 8 cups of water per day. -Iron supplements can make you constipated. You can take iron tablets every other day if constipation is too bad. -Nothing in the vagina for 6 weeks - no intercourse, douching, tampons. No tub baths or swimming pools. -Do not lift greater than 20pounds for 2 weeks, this is the equivalent of 2 gallons of milk. -Reasons to return to L&D or call On-Call doctor - fever (greater than 100.4) - heavy vaginal bleeding (soaking through 1 pad in less than 2 hours or passing clots that are egg sized) - vaginal discharge (malodorous and/or purulent) - severe headaches, leg tenderness/edema, or any other symptoms that warrant immediate medical attention. depression/blues - Normal to feel anxious/overwhelmed for first 2 weeks - Talk to your doctor if: anxiety lasts over 2 weeks, trouble bonding with baby, withdrawing from other family members, thoughts of harming yourself or others Taylor Amin DO [facility] [phone] *Nothing in the Vagina for 6 weeks* *No strenuous activity* *No heavy lifting* *No tub baths until okay's by MD* Patient Instructions: Depression, Hemorrhage, DI for Labor and Delivery, Vaginal , DI for Pre-eclampsia, [facility] Post Discharge Instructions Print Language: Stateless Providers Primary Care Provider: Fransisca Jalloh Admit Provider: Betsy Knapp Attending Provider: Betsy Knapp
== END 2024-10-24 17:49 | disposition home or self-care (01) | DRG 807 ==
LOC: OBOUT 08:13 → OB 08:13
PROVIDERS: Nurse Practitioner Obstetrics & Gynecology; Obstetrics & Gynecology; Admitting Provider Obstetrics & Gynecology; PCP Nurse Practitioner; Visit Provider Obstetrics & Gynecology
DX: O70.1 Second degree perineal laceration during delivery (principal); Z37.0 Single live birth; Z3A.39 39 weeks gestation of pregnancy; O99.334 Smoking (tobacco) complicating childbirth; F17.290 Nicotine dependence, other tobacco product, uncomplicated
CPT/HCPCS: 36415; 59025; 80048; 80307; 81001; 85014; 85018; 85025; 86592; 86850; 87086; 94761; G0283; J0696; J3010; J7120

== ENCOUNTER 2025-03-05 12:06 | Outpatient (CLI) | payer OTHER, SELFPAY ==
[2025-03-05 13:10] LABS: HCG,Quantitative 14733 mIU/ml (0-5.42)
== END 2025-03-05 23:59 | disposition home or self-care (01) ==
LOC: LAB 12:07
PROVIDERS: PCP Nurse Practitioner; Visit Provider Nurse Practitioner Obstetrics & Gynecology
DX: Z32.00 Encounter for pregnancy test, result unknown (principal)
CPT/HCPCS: 36415; 84702

== ENCOUNTER 2025-03-05 15:12 | Emergency (ER) | payer OTHER, SELFPAY ==
--- NOTE | 2025-03-05 15:21 | PC.NURSE ---
Dr Webber at bedside
--- NOTE | 2025-03-05 15:22 | [facility].EDGENADL ---
Discharge Plan Disposition Patient Disposition: Home, Self-Care Condition: Good Prescriptions Prescriptions: No Action Flintstones Multivitamin Tablet,Chewable 1 tab PO DAILY ibuprofen 800 mg tablet 800 mg PO Q8H PRN (Reason: pain) Qty: 60 2RF acetaminophen 500 mg tablet 500 mg PO Q6H PRN (Reason: fever or pain) Qty: 30 3RF ferrous sulfate 325 mg (65 mg iron) tablet,delayed release (DR/EC) 325 mg PO DAILY Qty: 30 3RF Referrals Follow up/Referrals: Sergio Cornejo MD [Staff Physician] - See instructions Fransisca Jalloh APRN [Primary Care Provider] - See instructions Activity Restrictions/Add. Instructions Additional Instructions/Restrictions: You were evaluated in the emergency department today. At this time, we are concerned that you have had a miscarriage. Please follow-up very closely with gynecology. Return to the emergency department for new or worsening symptoms. Clinical Impressions Clinical Impression: Spontaneous Stand Alone Forms Stand Alone Forms: Work/School Release Instructions Patient Instructions: DI for Miscarriage Print Language Print Language: Burkinan Discharge ED Provider: Srhuti Webber General Adult HPI <JESSICA Sandhu - Last Filed: 03/05/25 15:31> General Chief complaint: OB/Uterine Contractions Stated complaint: 7-8 weeks with bleeding Time Seen by Provider: 03/05/25 15:19 Related Data Home Medications ?Medication ?Instructions ?Recorded ?Confirmed pediatric multivitamin 1 tab PO DAILY 03/23/24 11/05/24 (Flintstones Multivitamin chewable tablet) Previous Rx's ?Medication ?Instructions ?Recorded acetaminophen 500 mg tablet 500 mg PO Q6H PRN fever or pain 10/24/24 #30 tabs ferrous sulfate 325 mg (65 mg 325 mg PO DAILY #30 tabs 10/24/24 iron) tablet,delayed release ibuprofen 800 mg tablet 800 mg PO Q8H PRN pain #60 tabs 10/24/24 Allergies Allergy/AdvReac Type Severity Reaction Status Date / Time No Known Allergies Allergy Verified 11/05/24 16:01 <Shruti Webber DO - Last Filed: 03/05/25 23:55> History of Present Illness HPI narrative: This patient is a 19-year-old G3, P2 at estimated 7 to 8 weeks gestation based on last menstrual period presenting to the emergency department for evaluation of concern for vaginal bleeding. She notes vaginal bleeding started this morning with some lower back cramping. She was well prior to this morning. She had not yet had prior confirmatory ultrasound for this given that it was early. She did have labs obtained earlier this morning that demonstrated an elevated quantitative hCG. She states that in the bathroom outside in the lobby, she passed something large and shows me a picture of what appears to be products of conception. She did flush this down the toilet. She denies any other concerns or complaints. [facility] <JESSICA Sandhu - Last Filed: 03/05/25 15:31> [facility] Disclaimer: The information contained in this section may have been updated after the patient was seen, as this information can be updated by other users. Medical History Spontaneous onset of labor Dilation of renal pelvis of fetus 39 weeks gestation of Encounter for elective induction of labor Placenta previa Surgical History Hx of appendectomy History of tonsillectomy Family History Other No significant family history Social History Smoking Status: Current every day smoker tobacco type: e-cigarettes alcohol intake: never substance use type: denies use current occupational status: employed Travel in the last 8 weeks: None Have you lived/traveled outside [place] in past 30 days?: No Contact w/someone who lives/traveled outside US past 30 days?: No Exposure to someone with infectious disease in past 14 days?: No Do you have a fever (greater than 100.4 F or 38 C)?: No Have you tested positive for COVID-19: No Exposed to someone with COVID-19 in past 14 days?: No Do you have a sore throat?: No Do you have a cough?: No Do you have any weakness?: No Do you have any diarrhea?: No Are you experiencing any unusual bleeding?: No Do you have any muscle aches/pain?: No Do you have any abdominal pain?: No Are you experiencing loss of taste or smell?: No Other Medical History Have you received the Flu Vaccine for this season: No Have you received the Pneumonia Vaccine: No <JESSICA Sandhu - Last Filed: 03/05/25 15:31> ROS Obtained: Yes Systems reviewed as appropriate & no additional complaints except as documented Physical Exam <JESSICA Sandhu - Last Filed: 03/05/25 15:31> General General appearance: alert and in no apparent distress Head Head exam: atraumatic and normal inspection Eye Eye exam: Present normal appearance, PERRL and EOMI ENT ENT exam: Present normal exam, normal oropharynx and mucous membranes moist Neck Neck exam: Present normal inspection, full ROM and trachea midline; Absent lymphadenopathy Chest Chest inspection: Present normal inspection and symmetric chest wall rise Respiratory Respiratory exam: Present normal lung sounds bilaterally; Absent accessory muscle use Cardiovascular Cardiovascular exam: Present regular rate, normal rhythm, normal heart sounds, +S1 and +S2 Abdominal Exam Abdominal exam: Present soft and normal bowel sounds; Absent tenderness, guarding or rebound Extremities Exam Extremities exam: Present normal inspection and full ROM Neurological Exam Neurological exam: Present alert, oriented X3 and CN II-XII intact Psychiatric Psychiatric exam: Present normal affect and normal mood Skin Skin exam: Present warm, dry and normal color Lymphatic Lymphatic Findings: no adenopathy <Shruti Webber DO - Last Filed: 03/05/25 23:55> Back Exam Back exam: Present normal inspection and full ROM; Absent tenderness Medical Decision Making <JESSICA Sandhu - Last Filed: 03/05/25 15:31> Medical Records Screening: Per USPSTF and CDC recommendations, given the prevalence of disease in our region, it is our hospital?s policy to screen for HIV and viral Hepatitis for all patients aged 18 and over and those with ongoing risk factors. Vital Signs: 03/05/25 15:29 03/05/25 15:30 03/05/25 15:30 Temperature 98.1 F Temperature Source Oral Pulse Rate 86 81 Pulse Rate [Radial] 82 Respiratory Rate 16 Blood Pressure 124/91 H 110/86 Blood Pressure [Right Arm] 124/91 H Blood Pressure Mean 95 91 Blood Pressure Mean [Right Arm] 102 Blood Pressure Source [Right Arm] Automatic Cuff Blood Pressure Position [Right Arm] Sitting 02 Sat by Pulse Oximetry 99 99 100 Oxygen Delivery Method Room Air 03/05/25 17:19 Temperature 98.3 F Temperature Source Pulse Rate 68 Pulse Rate [Radial] Respiratory Rate 18 Blood Pressure 108/78 L Blood Pressure [Right Arm] Blood Pressure Mean Blood Pressure Mean [Right Arm] Blood Pressure Source [Right Arm] Blood Pressure Position [Right Arm] 02 Sat by Pulse Oximetry Oxygen Delivery Method Lab Data Lab Results 03/05/25 16:40: WBC 8.8, RBC 4.76, Hgb 12.7, Hct 38.5, MCV 80.9 L, MCH 26.7 L, MCHC 33.0, RDW 14.0, Plt Count 289, MPV 10.1, Neut % (Auto) 74.2, Lymph % (Auto) 16.9, [place] % (Auto) 7.6, Eos % (Auto) 0.7, Baso % (Auto) 0.3, Neut # (Auto) 6.6, Lymph # (Auto) 1.5, [place] # (Auto) 0.7, Eos # (Auto) 0.1, Baso # (Auto) 0.0, Sodium 139, Potassium 3.6, Chloride 107, Carbon Dioxide 23, Anion Gap 12.6, BUN 5 L, Creatinine 0.70, Estimated Creat Clear 123, Estimated GFR 106, Est GFR ( Amer) 128, Glucose 91, Calcium 9.6, Total Bilirubin 0.7, AST 20, ALT 16, Alkaline Phosphatase 51, Total Protein 8.2, Albumin 4.9, Globulin 3.3 H, Albumin/Globulin Ratio 1.5, HCG, Quant [id number] H, HIV Ag/Ab Combo Qual Negative 03/05/25 16:40 03/05/25 16:40 Orders (Tests/Meds): ORDERS Category Date Time Status POCUS Point of Care (ER Only) Stat Exams 03/05/25 15:19 Completed Complete Blood Count Auto Diff Stat Lab 03/05/25 16:40 Completed Comprehensive Metabolic Panel Stat Lab 03/05/25 16:40 Completed HCG,Quantitative Stat Lab 03/05/25 16:40 Completed HIV Combo Stat Lab 03/05/25 16:40 Completed US OB transvaginal Stat Ultrasound 03/05/25 15:25 Completed Medical Decision Narrative: In summary patient is a [age, sex] who presents to the emergency department for evaluation of [complaint]. Patient is [hemodynamically stable/unstable] upon arrival, [febrile/afebrile]. [Unremarkable physical exam, nonfocal exam versus focal remarkable exam]. Differential diagnosis includes [DDx]. Initial workup will be conducted with [hematologic labs, imaging, respiratory swab, describe workup]. Initial interventions include [crystalloid bolus, medications, p.o. challenge, etc.] initial workup reviewed by me [hematologic labs are remarkable for... Imaging remarkable for... Urinalysis remarkable for]. Upon repeat evaluation [patient had acceptable resolution of symptoms, had persistent pain for which additional interventions were conducted (describe interventions), tolerated p.o., was ambulatory, etc.]. Given this [patient is appropriate for discharge at this time and will be discharged with a prescription for... The case was discussed with hospital medicine regarding management and they will admit the patient their service for continued evaluation at this time... Etc.] Places where you can increase complexity: I informally interpreted the patient's chest x-ray or CT read and is remarkable for... Documenting what the sweatband separator shows with rate and rhythm Consideration of test but deferring. Ex: I considered chest x-ray on this patient however given that they have no oxygen requirement and are clear to auscultation all lung holman will be deferred. Social determinants of health: Given that patient is undomiciled increases complexity. Given that patient has polysubstance abuse compounds all aspects of care <Shruti Webber, DO - Last Filed: 03/05/25 23:55> Medical Records Medical records reviewed: Yes I reviewed the patient's medical records. [place] Inquiry Pt receiving controlled substance: No Vital Signs: 03/05/25 15:29 03/05/25 15:30 03/05/25 15:30 Temperature 98.1 F Temperature Source Oral Pulse Rate 86 81 Pulse Rate [Radial] 82 Respiratory Rate 16 Blood Pressure 124/91 H 110/86 Blood Pressure [Right Arm] 124/91 H Blood Pressure Mean 95 91 Blood Pressure Mean [Right Arm] 102 Blood Pressure Source [Right Arm] Automatic Cuff Blood Pressure Position [Right Arm] Sitting 02 Sat by Pulse Oximetry 99 99 100 Oxygen Delivery Method Room Air 03/05/25 17:19 Temperature 98.3 F Temperature Source Pulse Rate 68 Pulse Rate [Radial] Respiratory Rate 18 Blood Pressure 108/78 L Blood Pressure [Right Arm] Blood Pressure Mean Blood Pressure Mean [Right Arm] Blood Pressure Source [Right Arm] Blood Pressure Position [Right Arm] 02 Sat by Pulse Oximetry Oxygen Delivery Method Lab Data Lab results reviewed: Yes I reviewed the patient's lab results. Lab Results 03/05/25 16:40: WBC 8.8, RBC 4.76, Hgb 12.7, Hct 38.5, MCV 80.9 L, MCH 26.7 L, MCHC 33.0, RDW 14.0, Plt Count 289, MPV 10.1, Neut % (Auto) 74.2, Lymph % (Auto) 16.9, [place] % (Auto) 7.6, Eos % (Auto) 0.7, Baso % (Auto) 0.3, Neut # (Auto) 6.6, Lymph # (Auto) 1.5, [place] # (Auto) 0.7, Eos # (Auto) 0.1, Baso # (Auto) 0.0, Sodium 139, Potassium 3.6, Chloride 107, Carbon Dioxide 23, Anion Gap 12.6, BUN 5 L, Creatinine 0.70, Estimated Creat Clear 123, Estimated GFR 106, Est GFR ( Amer) 128, Glucose 91, Calcium 9.6, Total Bilirubin 0.7, AST 20, ALT 16, Alkaline Phosphatase 51, Total Protein 8.2, Albumin 4.9, Globulin 3.3 H, Albumin/Globulin Ratio 1.5, HCG, Quant [id number] H, HIV Ag/Ab Combo Qual Negative Orders (Tests/Meds): ORDERS Category Date Time Status POCUS Point of Care (ER Only) Stat Exams 03/05/25 15:19 Completed Complete Blood Count Auto Diff Stat Lab 03/05/25 16:40 Completed Comprehensive Metabolic Panel Stat Lab 03/05/25 16:40 Completed HCG,Quantitative Stat Lab 03/05/25 16:40 Completed HIV Combo Stat Lab 03/05/25 16:40 Completed US OB transvaginal Stat Ultrasound 03/05/25 15:25 Completed Medical Decision Narrative: In summary, this patient is a 19-year-old female presenting to the Emergency Department for evaluation of vaginal bleeding in the setting of with no prior confirmatory ultrasound. She also passed on it appears to be products of conception in the lobby bathroom, however I am only able to visualize a picture. Differential diagnoses considered include but are not limited to threatened , missed , incomplete . Ruling out the most morbid conditions drove assessment. I reviewed patient's past medical records and noted quantitative hCG obtained earlier this morning at 14,733. As noted prior blood type is Rh+, so no indication for RhoGAM. On exam, the patient is lying in bed in no acute distress with normal vital signs and cardiac telemetry. Abdominal exam is benign. I performed bedside OB ultrasound and I do not see an IUP or ectopic , so for further assessment I did order transvaginal ultrasound. Workup included CBC, CMP, quantitative hCG. I independently interpreted transvaginal ultrasound prior to the radiologist read and noted thickening of atrium with empty uterus concerning for . Please see their read for final interpretation. Labs were obtained that demonstrated reassuring CBC with no significant leukocytosis or anemia, chemistry is reassuring. hCG is 13,025. At this time, feel patient has had a spontaneous and is appropriate for discharge home with close follow-up with gynecology. I gave her strict return precautions should she have worsening bleeding as well as instructions for supportive care. She was discharged after all questions were answered. Procedures <Shruti Webber DO - Last Filed: 03/05/25 23:55> Limited Ultrasound Interpretation:: Limited OB ultrasound Indication: Positive test, vaginal bleeding Identified structures: [-Uterus -Left adnexa -Right adnexa -Pouch of Morgan] Findings: Uterus: No definitive IUP Right adnexa: [-Normal -Free fluid -Abnormality] Left adnexa: Normal Cul de sac: Free fluid absent Impression: -IUP: Absent -Ectopic : Absent -Free fluid: Absent Images worsen to permanent archive The study was technically adequate [facility] Transabdominal: [id number] This study was performed by me, and I personally interpreted all images/videos. Based on my clinical judgement, these images were adequate and did not necessitate further imaging. Critical Care <Shruti Webber DO - Last Filed: 03/05/25 23:55> Critical Care Time Critical Care Time: No
--- NOTE | 2025-03-05 15:25 | US_ITS ---
PROCEDURE INFORMATION: Exam: US , Transvaginal Exam date and time: 03/05/2025 3:30 PM Age: 19 years old Clinical indication: Condition or disease; Lmp or gestational age (weeks): Unkown lmp; Other: Heavy bleeding; 3rd ; ; Additional info: 7-8wk preg, o+, actively bleed, poss miscarriage TECHNIQUE: Imaging protocol: Real-time transvaginal obstetrical ultrasound of the maternal pelvis with image documentation. Transvaginal imaging was used for better evaluation of the fetus, adnexa, and/or cervix. COMPARISON: US OB FOLLOW UP 10/07/2024 1:41 PM FINDINGS: MATERNAL: Uterus: Uterus is retroverted. The endometrium is heterogeneous throughout. Mildly thickened, measuring up to 12 mm in thickness. No intrauterine gestational sac. Trace fluid in the endometrial canal. Right ovary/adnexa: Right ovary measures 2.47 cm x 1.33 cm x 1.6 cm. Right ovarian volume is 2.75 mL. Left ovary/adnexa: Left ovary measures 2.1 cm x 1.92 cm x 1.29 cm. Left ovarian volume is 2.72 mL. IMPRESSION: Heterogeneous, mildly thickened endometrium. Trace endometrial canal fluid. No intrauterine gestational sac is identified.
[2025-03-05 15:29] VITALS: BP 124/91; PULSE 86; O2SAT 99
[2025-03-05 15:30] VITALS: BP 110/86; BP 124/91; PULSE 81; PULSE 82; RESP 16; TEMP 36.7; O2SAT 100; O2SAT 99; BMI 21.7
[2025-03-05 16:50] LABS: Basophils % 0.3 % (0.1-2.0); Eosinophils # 0.1 Kmm3 (0.0-0.4); Eosinophils % 0.7 % (0.1-12.0); Hematocrit 38.5 % (37.0-47.0); Hemoglobin 12.7 g/dL (12.2-16.2); Lymphocytes # 1.5 K/mm3 (0.7-4.5); Lymphocytes % 16.9 % (10-50); Mean Corpuscular Hemoglobin 26.7 pg (27.0-31.2); Mean Corpuscular Volume 80.9 fl (81-99); Mean Platelet Volume 10.1 fl (7.4-10.4); Monocytes # 0.7 K/mm3 (0.1-1.0); Monocytes % 7.6 % (1.7-9.3); Neutrophils # 6.6 K/mm3 (1.8-7.8); Neutrophils % 74.2 % (37.0-80.0); Nucleated Red Blood Cells # 0 10^3/uL; Nucleated Red Blood Cells % 0 %; Platelet Count 289 K/mm3 (142-424); Red Blood Count 4.76 M/mm3 (4.20-5.40); Red Cell Distribution Width-SD 41.1 fL; White Blood Count 8.8 K/mm3 (4.8-10.8)
[2025-03-05 16:55] LABS: Albumin Level 4.9 g/dl (3.5-5.0); Chloride 107 mmol/L (98-107); Potassium 3.6 mmoL/L (3.5-5.1); Sodium 139 mmol/L (136-145)
[2025-03-05 16:58] LABS: Alanine Aminotransferase 16 U/L (12-78); Albumin/Globulin Ratio 1.5 (1.1-1.8); Alkaline Phosphatase 51 U/L (38-126); Anion Gap 12.6 mEq/L (5-15); Aspartate Amino Transferase 20 U/L (14-36); Bilirubin,Total 0.7 mg/dl (0.2-1.3); Blood Urea Nitrogen 5 mg/dl (7-17); Calcium 9.6 mg/dl (8.4-10.2); Carbon Dioxide 23 mmol/L (22.0-30.0); Creatinine Clearance Estimated 123 mL/min (50-200); Estimated Glomerular Filt Rate 106 ml/min (>60); GFR (African American) 128 ML/MIN (>60); Globulin 3.3 g/dL (1.3-3.2); Glucose 91 mg/dl (74-100); Total Protein,Serum 8.2 g/dl (6.3-8.2)
[2025-03-05 17:15] LABS: HCG,Quantitative 13025 mIU/ml (0-5.42)
[2025-03-05 17:19] VITALS: BP 108/78; PULSE 68; RESP 18; TEMP 36.8; O2SAT 98
[2025-03-05 18:02] LABS: HIV Combo NEGATIVE (Negative)
== END 2025-03-05 17:20 | disposition home or self-care (01) ==
PROVIDERS: Emergency Provider Emergency Medicine; PCP Nurse Practitioner
DX: O03.9 Complete or unspecified spontaneous abortion without complication (principal); Z11.4 Encounter for screening for human immunodeficiency virus [HIV]
CPT/HCPCS: 76817; 80053; 84702; 85025; 87389; 99284